=== PATIENT | male | born 1980 | race Caucasian/White ===

== ENCOUNTER 2023-02-01 18:16 | Emergency (ER) | payer OTHER, SELFPAY ==
[2023-02-01 18:25] VITALS: BP 140/80; PULSE 79; RESP 14; TEMP 37.1; O2SAT 99
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
[2023-02-01] MEDS: TET,DIPH,PERTUSS(ACELL),VAC/PF 0.5 ML SYRINGE IM (19:01)
[2023-02-01] MEDS: LIDOCAINE 2% INJ SDV 5ML 5 ML (19:04)
[2023-02-01] MEDS: BACITRACIN OINT 0.9 GM PCKT 1 APPLIC TOP (19:37)
[2023-02-01] MEDS: OXYCODONE/APAP 5/325 PREPACK 1 BOTTLE MISC (19:53)
== END 2023-02-01 19:50 | disposition home or self-care (01) ==
PROVIDERS: Emergency Provider Registered Nurse
DX: S81.012A Laceration without foreign body, left knee, initial encounter (principal); W22.8XXA Striking against or struck by other objects, initial encounter; Z23 Encounter for immunization
CPT/HCPCS: 12002; 90471; 99283; 90715